=== PATIENT | male | born 1975 | race Caucasian/White ===

== ENCOUNTER 2021-02-20 08:19 | Emergency (ER) | payer OTHER ==
[~2021-02-20] VITALS: Ht 188 cm; Wt 81.6 kg
--- NOTE | 2021-02-20 08:34 | NUR ---
joel, from home, alcohol intoxicated, bs 129. On room air, breathing evenly and unlabored. Connected to the monitor and pulse ox. kept comfortable, will continue to monitor accordingly.
--- NOTE | 2021-02-20 09:09 | NUR ---
THE PATIENT UNABLE TO GIVE URINE AT THIS TIME. STARTED THAT HE WILL TRY TO URINATE LATER.
[2021-02-20 09:27] LABS: BASOPHILS % (AUTO) 0.2 % (0.0-2.0); EOSINOPHILS % (AUTO) 0.1 % (0.0-6.0); HEMATOCRIT 44 % (39-51); HEMOGLOBIN 15.6 g/dL (13.5-17.5); LYMPHOCYTES # (AUTO) 2.7 K/uL (0.8-4.8); LYMPHOCYTES % (AUTO) 39.6 % (20.0-44.0); MEAN CORPUSCULAR HGB CONC 35 g/dl (31.0-36.0); MEAN CORPUSCULAR VOLUME 94 fL (80-96); MONOCYTES # (AUTO) 0.6 K/uL (0.1-1.30); MONOCYTES % (AUTO) 8.7 % (2.0-12.0); NEUTROPHILS # (AUTO) 3.5 K/uL (1.8-8.9); NEUTROPHILS % (AUTO) 51.4 % (43.0-81.0); PLATELET COUNT (AUTO) 168 K/uL (150-450); RED BLOOD CELL COUNT(AUTO) 4.72 MIL/uL (4.5-6.0); WHITE BLOOD COUNT (AUTO) 6.8 K/uL (4.3-11.0)
[2021-02-20 09:30] LABS: CREATININE 0.8 mg/dL (0.6-1.3); POTASSIUM 3.3 mmol/L (3.5-5.1)
[2021-02-20] MEDS ORDERED: HALOPERIDOL LACTATE INJ 5 MG/ML VIAL IM ONE (09:30)
[2021-02-20] MEDS ORDERED: HALOPERIDOL LACTATE INJ 5 MG/ML VIAL ONE (09:31)
[2021-02-20 09:38] LABS: ALBUMIN 3.6 g/dL (3.4-5.0); BILIRUBIN,DIRECT 0.5 mg/dL (0.0-0.2); BILIRUBIN,TOTAL 1.2 mg/dL (0.2-1.0); CALCIUM, SERUM 7.6 mg/dL (8.5-10.1); TOTAL PROTEIN, SERUM 7.6 g/dL (6.4-8.2)
--- NOTE | 2021-02-20 09:45 | NUR ---
URINE COLLECTED AND SENT TO THE LAB
[2021-02-20 10:00] LABS: BILIRUBIN,URINE Negative (NEGATIVE); COLOR,URINE YELLOW (YELLOW); LEUKOCYTE ESTERASE ,URINE Negative (NEGATIVE); NITRITE, URINE Negative (NEGATIVE); PH,URINE 6.5 (5.0-8.0); PROTEIN,URINE Trace mg/dl (NEGATIVE); UGLUCOSE Negative (NEGATIVE)
[2021-02-20 10:12] LABS: BACTERIA,URINE Rare /HPF (None Seen); RBC,URINE 0-2 /HPF (0-2); SQUAMOUS EPITHELIAL CELL,UR Rare /HPF (None Seen); WBC,URINE 0-2 /HPF (0-3)
--- NOTE | 2021-02-20 11:05 | NUR ---
ENDORSEMENT GIVEN TO NURSE SOUZA FOR [employer]
--- NOTE | 2021-02-20 11:14 | NUR ---
THE PATIENT IS IN NO APPARENT DISTRESS. VSS STABLE.
--- NOTE | 2021-02-20 11:29 | NUR ---
PT IS CURRENTLY SLEEPING. NO DISTRESS NOTED.
[2021-02-20] MEDS ORDERED: POTASSIUM CHLORIDE 20 MEQ TAB.PRT.SR PO ONE (11:30)
[2021-02-20] MEDS ORDERED: POTASSIUM CHLORIDE 10 MEQ TABLET.SA ONE (11:41)
--- NOTE | 2021-02-20 11:53 | NUR ---
PT IS AWAKE. AMBULATED TO THE BATHROOM W/O ASSIST.
--- NOTE | 2021-02-20 11:55 | NUR ---
CALLED PT'S GIRLFRIEND FOR TAX PREPARER BUT NO ANSWER. UNABLE TO LEAVE VOICEMAIL WELL
[2021-02-20] MEDS ORDERED: LORAZEPAM 1 MG TABLET ONE ×2 (12:08→13:07)
[2021-02-20] MEDS ORDERED: LORAZEPAM 1 MG TABLET PO ONE ×2 (12:30→13:30)
--- NOTE | 2021-02-20 12:30 | NUR ---
SAVANAH [facility] CALLED,CONTACT INFO [phone]
[2021-02-20] MEDS ORDERED: METOCLOPRAMIDE HCL 10 MG/2 ML VIAL IM ONE (13:00)
[2021-02-20] MEDS ORDERED: METOCLOPRAMIDE HCL 10 MG/2 ML VIAL ONE (13:01)
--- NOTE | 2021-02-20 13:18 | NUR ---
PT IS RELEASED UNDER THE CARE OF HIS GIRLFRIEND, DOMINIK. PT IS MEDICALLY CLEARED. HE IS AMBULATORY ON STEADY GAIT WITHOUT ASSIST. PT IS GOING TO BE ADMITTED FOR TREATMENT AT THE [facility] WHERE THEY ARE HEADING.
[2021-02-20 13:20] VITALS: BP 148/90
--- NOTE | 2021-02-20 13:38 | NUR ---
SW attempted to meet with pt. for assessment and addiction resources. However, pt. has departed with girlfriend and per EMR, plan is for pt. to go to [facility] rehab.
== END 2021-02-20 13:21 | disposition home or self-care (01) ==
LOC: ER 08:22
DX: F10.129 Alcohol abuse with intoxication, unspecified (principal); R45.1 Restlessness and agitation; E87.6 Hypokalemia; E83.51 Hypocalcemia; Y90.8 Blood alcohol level of 240 mg/100 ml or more
CPT/HCPCS: 36415; 80048; 80076; 80143; 80307; 80320; 81001; 83735; 84484; 85025; 93005; 96372 ×2; 99285; J1630; J2765; G0480

== ENCOUNTER 2021-07-21 10:45 | Inpatient (IN) | payer OTHER ==
[~2021-07-21] VITALS: Ht 188 cm; Wt 92.1 kg
--- NOTE | 2021-07-21 10:55 | NUR ---
BRENDA 60 AFTER PT ROOMMATE FINDING HIM ON THE FLOOR STATING THAT HE HAS BEEN DRINKING FOR THE PAST 7 DAYS. BLOOD GLUCOSE WAS 360 SHOE COVERER. NOTED BRUISING ON FACE AND LOWER BACK. BLOOD GLUCOSE WAS RETAKEN UPON ARRIVAL AND WAS 249. HEART RATE IS EELEVATED, MD AWARE. BREATHING IS EVEN AND UNLABORED.
[2021-07-21] MEDS ORDERED: IV NS 0.9% 1,000 ML BAG IV ONE (11:00)
--- NOTE | 2021-07-21 11:21 | NUR ---
IV ESTABLISHED #20G R AC, LABS WERE DRAWN AND DAMIR Das
[2021-07-21 11:29] LABS: BASOPHILS % (AUTO) 0.1 % (0.0-2.0); EOSINOPHILS % (AUTO) 0.1 % (0.0-6.0); HEMATOCRIT 54 % (39-51); LYMPHOCYTES # (AUTO) 1.8 K/uL (0.8-4.8); LYMPHOCYTES % (AUTO) 31.2 % (20.0-44.0); MEAN CORPUSCULAR HGB CONC 34 g/dl (31.0-36.0); MEAN CORPUSCULAR VOLUME 95 fL (80-96); MONOCYTES # (AUTO) 0.4 K/uL (0.1-1.30); MONOCYTES % (AUTO) 6.2 % (2.0-12.0); NEUTROPHILS # (AUTO) 3.5 K/uL (1.8-8.9); NEUTROPHILS % (AUTO) 62.4 % (43.0-81.0); PLATELET COUNT (AUTO) 60 K/uL (150-450); RED BLOOD CELL COUNT(AUTO) 5.62 MIL/uL (4.5-6.0); WHITE BLOOD COUNT (AUTO) 5.7 K/uL (4.3-11.0)
--- NOTE | 2021-07-21 11:34 | NUR ---
PT TAKEN TO CT
[2021-07-21 11:41] LABS: ALANINE AMINOTRANSFERASE 64 U/L (12-78); ALBUMIN 3.5 g/dL (3.4-5.0); ALKALINE PHOSPHATASE 220 U/L (46-116); ASPARTATE AMINOTRANSFERASE 195 U/L (15-37); BILIRUBIN,DIRECT 0.6 mg/dL (0.0-0.2); CALCIUM, SERUM 7.8 mg/dL (8.5-10.1); CARBON DIOXIDE 24 mmol/L (21-32); CHLORIDE 95 mmol/L (98-107); CREATININE 0.9 mg/dL (0.6-1.3); GLUCOSE 225 mg/dL (74-106); POTASSIUM 3.1 mmol/L (3.5-5.1); SODIUM SERUM 137 mmol/L (136-145); TOTAL PROTEIN, SERUM 8.3 g/dL (6.4-8.2); UREA NITROGEN, BLOOD 13 mg/dL (7-18)
[2021-07-21 11:42] LABS: ACETAMINOPHEN < 2 ug/ml (10-30)
[2021-07-21 11:57] LABS: EOSINOPHILS % (MANUAL) 1 % (0-4); LYMPHOCYTES % (MANUAL) 26 % (16-48); MONOCYTES % (MANUAL) 4 % (0-11.0); NEUTROPHILS % (MANUAL) 69 (42-76)
[2021-07-21] MEDS ORDERED: POTASSIUM CHLORIDE 10 MEQ/50 ML PREMIXED IVPB FOR PERIPHERAL LINE IV ONE (12:00)
[2021-07-21] MEDS ORDERED: POTASSIUM CHLORIDE 20 MEQ TAB.PRT.SR PO ONE ×2 (12:00→12:22)
[2021-07-21 12:03] LABS: SERUM AMMONIA 24 umol/L (11-32); THYROID STIMULATING HORMONE 1.281 uIU/mL (0.358-3.74)
--- NOTE | 2021-07-21 12:03 | NUR ---
URINE COLLECTED AND SENT
[2021-07-21] MEDS ORDERED: POTASSIUM CL. PREMIX PERIPHER. 50 ML ONE (12:22)
[2021-07-21 12:41] LABS: BILIRUBIN,URINE MODERATE (NEGATIVE); COLOR,URINE ORANGE (YELLOW); LEUKOCYTE ESTERASE ,URINE NEGATIVE (NEGATIVE); NITRITE, URINE NEGATIVE (NEGATIVE); PROTEIN,URINE 100 mg/dl (NEGATIVE); UGLUCOSE NEGATIVE (NEGATIVE)
[2021-07-21 12:55] LABS: BACTERIA,URINE Few /HPF (None Seen); SQUAMOUS EPITHELIAL CELL,UR Few /HPF (None Seen); WBC,URINE 0-2 /HPF (0-3)
--- NOTE | 2021-07-21 13:12 | NUR ---
PT NON COMPLIANT AND NOT ABLE TO FOLLOW COMMANDS. WILL HOLD K DUR UNTIL WHEN PT IS MORE ALERT. SANTOSH MOE AWARE.
--- NOTE | 2021-07-21 13:39 | NUR ---
DR FREEMAN WAS SENT A VIDEO OF PT'S CT
[2021-07-21] MEDS ORDERED: LEVETIRACETAM (500MG) 1,000 MG in IV NS 0.9% 100 ML IV SCH (14:00)
--- NOTE | 2021-07-21 14:00 | NUR ---
COVID SWAB COLLECTED AND SENT TO LAB
--- NOTE | 2021-07-21 14:00 | NUR ---
SARCOV2 AG COLLECTED BY LAB AT BEDSIDE, IN PROGRESS
--- NOTE | 2021-07-21 14:15 | NUR ---
MOVE SHEET SUBMITTED.
--- NOTE | 2021-07-21 14:36 | NUR ---
[facility] CALLED LOAF COUNTER PAGED.
[2021-07-21] MEDS ORDERED: ACETAMINOPHEN 325 MG TABLET PO PRN (15:30)
[2021-07-21] MEDS ORDERED: Z GUARD REMEDY 4 OZ OINT TP PRN (15:30)
--- NOTE | 2021-07-21 17:39 | NUR ---
JOURDAN NEGRETE CALLED, SISTER [phone] STATES PT HAS ISSUES WITH ALCOHOL, AND HAS A BRAIN BLEED FELL IN APRIL TOOK HIM TO [facility] AND FELL AGAIN FEW WEEKS AGO TOOK TO [facility] AND REFUSED TREATMENT AND GOT DC'D.
[2021-07-21] MEDS ORDERED: LORAZEPAM INJ 2 MG/ML VIAL ONE (18:24)
[2021-07-21] MEDS: LORAZEPAM INJ 2 MG/ML VIAL IV PRN (18:34)
--- NOTE | 2021-07-21 18:34 | NUR ---
PT AGITATED AND RESTLESS, TACHY ON THE MONITOR. ATIVAN 1 MG IVP GIVEN. SEE EMAR.
[2021-07-21] MEDS ORDERED: POTASSIUM CL. PREMIX PERIPHER. 200 ML ONE (18:45)
[2021-07-21] MEDS ORDERED: PANTOPRAZOLE 40 MG VIAL ONE (18:45)
[2021-07-21] MEDS: PANTOPRAZOLE 40 MG VIAL IV SCH (19:04)
[2021-07-21] MEDS: Thiamine 100 MG in IV D5W 50 ML IV SCH (19:04)
[2021-07-21] MEDS: POTASSIUM CL. PREMIX PERIPHER. 50 ML IV SCH ×2 (21:56→23:04)
--- NOTE | 2021-07-21 21:56 | NUR ---
ADMINISTERING POTASSIUM [id number]: BAG 1/4 L HAND #20G S/L; PATENT AND INTACT IVF DELAYED DUE TO NO IV ACCESS
[2021-07-22] VITALS (8 sets, daily range): BP systolic 105–140; BP diastolic 77–90
[2021-07-22] MEDS: POTASSIUM CL. PREMIX PERIPHER. 50 ML IV SCH (00:03)
--- NOTE | 2021-07-22 00:18 | NUR ---
ROOM ASSIGNMENT: 309-1
--- NOTE | 2021-07-22 00:28 | NUR ---
REPORT GIVEN TO NENO BOOTH FOR [employer]
[2021-07-22] MEDS ORDERED: ONDANSETRON HCL/PF 4 MG/2 ML VIAL ONE (00:37)
[2021-07-22] MEDS: ONDANSETRON HCL/PF 4 MG/2 ML VIAL IVP PRN ×2 (00:38→04:27)
[2021-07-22] MEDS ORDERED: LORAZEPAM INJ 2 MG/ML VIAL ONE (00:42)
[2021-07-22] MEDS: LORAZEPAM INJ 2 MG/ML VIAL IV PRN ×6 (00:47→22:16)
--- NOTE | 2021-07-22 00:50 | NUR ---
SILVICULTURE FORESTER OPENING NOTE PATIENT RECEIVED FROM ER BY JANE. PATIENT WAS ABLE TO AMBULATE TO HIS BED. NO S/S OF DISTRESS, PATIENT EXHIBITS TREMORS. VS ARE WNL: 128/93, HR 109, RESP 20, T 97.9, O2 93%. HOWEVER, TELE STATES 139. PT HAS LH 20G. PATENT. PATIENT WAS ORIENTED TO THE ROOM AND GIVEN CALL BRENNAN. BELONGINGS ACCOUNTED FOR AND LOGGED INTO SHEET BY TELEVISION NEWS VIDEO EDITOR. PATIENT IS TELE WITH 139. BED AT LOWEST POSITION, RAILS UP X2, CALL BRENNAN WITHIN REACH. WILL CONTINUE TO MONITOR PATIENT.
--- NOTE | 2021-07-22 01:03 | NUR ---
PT TRANSFERRED 3W 309-1 VIA ACLS PROTOCOL. ALL BELONGINGS WITH PT
[2021-07-22] MEDS: IV NS 0.9% 1,000 ML IV PRN (04:11)
[2021-07-22] MEDS ORDERED: LEVETIRACETAM (500MG) 500 MG/5 ML VIAL IV ONE (04:41)
[2021-07-22] MEDS: LEVETIRACETAM (500MG) 1,000 MG in IV NS 0.9% 100 ML IV SCH ×2 (04:58→14:34)
--- NOTE | 2021-07-22 07:10 | NUR ---
RN OPENING NOTE RECEIVED PATIENT IN BED. A/O X2-3. ABLE TO MAKE NEEDS KNOWN. ON ROOM AIR, TOLERATING WELL. DENIES SOB. NO S/S OF REPSIRATORY DISTRESS. ST ON THE TELE MONITOR. IV ACCESS ON L HAND #20 G, NS RUNNING AT 125 ML/HR, INTACT AND PATENT. RANGEL CATHETER IN PLACE, DRAINIG YELLOW URINE. SAFETY MEASURES MAINTAINED. BED IN LOWEST POSITION, BRAKES LOCKED. SIDE RAILS UP X2. CALL LIGHT WITHIN REACH. WILL CONTINUE PLAN OF CARE.
[2021-07-22 08:00] LABS: CALCIUM, SERUM 7.9 mg/dL (8.5-10.1); CREATININE 0.9 mg/dL (0.6-1.3); MAGNESIUM 1.3 mg/dL (1.8-2.4); PHOSPHORUS 1.9 mg/dL (2.5-4.9); POTASSIUM 3.6 mmol/L (3.5-5.1)
--- NOTE | 2021-07-22 08:03 | NUR ---
RN NOTE PER NENO BOOTH, 4th BAG OF POTASSIUM CHLORIDE 10 mEq/50 ml WAS GIVEN BY AN FRONT OFFICE AGENT BEFORE BRINGING THE PATIENT UP FOR ADMISSION.
[2021-07-22] MEDS: PANTOPRAZOLE 40 MG VIAL IV SCH (08:37)
[2021-07-22] MEDS: Magnesium 1GM/D5W 100ML PREMIX 100 ML IV SCH ×4 (10:06→13:45)
[2021-07-22 11:54] LABS: BASOPHILS % (AUTO) 0.2 % (0.0-2.0); HEMATOCRIT 36 % (39-51); HEMOGLOBIN 12.3 g/dL (13.5-17.5); LYMPHOCYTES # (AUTO) 1.1 K/uL (0.8-4.8); LYMPHOCYTES % (AUTO) 23.1 % (20.0-44.0); MEAN CORPUSCULAR HGB CONC 35 g/dl (31.0-36.0); MEAN CORPUSCULAR VOLUME 95 fL (80-96); MONOCYTES # (AUTO) 0.5 K/uL (0.1-1.30); MONOCYTES % (AUTO) 11.2 % (2.0-12.0); NEUTROPHILS # (AUTO) 3.2 K/uL (1.8-8.9); NEUTROPHILS % (AUTO) 65.5 % (43.0-81.0); RED BLOOD CELL COUNT(AUTO) 3.74 MIL/uL (4.5-6.0); WHITE BLOOD COUNT (AUTO) 4.9 K/uL (4.3-11.0)
[2021-07-22] MEDS ORDERED: K PHOS NEUTRAL 250 MG TABLET PO ONE (16:00)
[2021-07-22 17:24] LABS: PLATELET COUNT (AUTO) 29 K/uL (150-450)
--- NOTE | 2021-07-22 17:25 | NUR ---
RN NOTE RECEIVED A CALL FROM THE LAB (CHAITANYA Moss) REGARDING A CRITICAL VALUE, PLATELET 29. DR JAMAAL SOTELO, CLAUDY WAS MADE AWARE. NO NEW ORDERS.
[2021-07-22] MEDS: Thiamine 100 MG in IV D5W 50 ML IV SCH (18:30)
--- NOTE | 2021-07-22 18:42 | NUR ---
RN CLOSING NOTE PATIENT RESTING IN BED. A/O X2-3. ON ROOM AIR, TOLERATING WELL. DENIES SOB. NO S/S OF RESPIRATORY DISTRESS. IV ACCESS ON L HAND #20 G, NS RUNNING AT 125 ML/HR, INTACT AND PATENT. RANGEL CATHETER IN PLACE, DRAINING LUIS ANTONIO URINE. DUE MEDS GIVEN ORDERED. ALL NEEDS HAVE BEEN MET AND ATTENDED. SAFETY MEASURES MAINTAINED. BED IN LOWEST POSITION, BRAKES LOCKED. SIDE RAILS UP X2. KEPT CALL LIGHT WITHIN REACH. WILL ENDORSE CONTINUITY OF CARE TO ONCOMING SHIFT.
[2021-07-22 19:12] LABS: BAND % (MANUAL) 2 % (0.0-5.0); LYMPHOCYTES % (MANUAL) 21 % (16-48); MONOCYTES % (MANUAL) 5 % (0-11.0); NEUTROPHILS % (MANUAL) 72 (42-76)
--- NOTE | 2021-07-22 20:01 | NUR ---
MS OPENING NOTE PATIENT RECEIVED ASLEEP IN BED. A/OX4. NO S/S OF DISTRESS, BREATHING SYMMETRICAL. PATIENT IS MEDSURG, BUT PREVIOUS NURSE ENDORSE KEEPING THE TELE MONITOR ON D/T EARLIER INCREASED HR OF 190s. [employer] CURRENTLY REPORTS SR 100. SAFETY MEASURES IN PLACE: BED AT LOWEST POSITION, RAILS UP X2, CALL BRENNAN WITHIN REACH. WILL CONTINUE TO MONITOR.
[2021-07-23] MEDS: LEVETIRACETAM (500MG) 1,000 MG in IV NS 0.9% 100 ML IV SCH (02:16)
[2021-07-23] MEDS: IV NS 0.9% 1,000 ML IV PRN ×2 (02:42→18:39)
[2021-07-23] MEDS: LORAZEPAM INJ 2 MG/ML VIAL IV PRN ×5 (02:42→21:45)
[2021-07-23 04:00] VITALS: BP 132/84
[2021-07-23 06:22] LABS: BASOPHILS % (AUTO) 0.2 % (0.0-2.0); HEMATOCRIT 36 % (39-51); HEMOGLOBIN 12.1 g/dL (13.5-17.5); LYMPHOCYTES # (AUTO) 0.8 K/uL (0.8-4.8); LYMPHOCYTES % (AUTO) 26.3 % (20.0-44.0); MEAN CORPUSCULAR HGB CONC 34 g/dl (31.0-36.0); MEAN CORPUSCULAR VOLUME 96 fL (80-96); MONOCYTES # (AUTO) 0.3 K/uL (0.1-1.30); MONOCYTES % (AUTO) 9.6 % (2.0-12.0); NEUTROPHILS # (AUTO) 1.8 K/uL (1.8-8.9); NEUTROPHILS % (AUTO) 61.9 % (43.0-81.0); RED BLOOD CELL COUNT(AUTO) 3.72 MIL/uL (4.5-6.0); WHITE BLOOD COUNT (AUTO) 2.9 K/uL (4.3-11.0)
--- NOTE | 2021-07-23 06:30 | NUR ---
CHAIRMAN CEO CLOSING NOTE PATIENT ASLEEP IN BED. A/OX4. NO S/S OF DISTRESS, BREATHING SYMMETRICAL. CABLE SYSTEMS INSTALLER REPORTS ST112 WHICH IS RELATIVELY GOOD FOR THIS PATIENT. LH #20 G NS 125ML/HR. SAFETY MEASURES IN PLACE: BED AT LOWEST LEVEL, RAILS UP X2, CALL BRENNAN WITHIN REACH. WILL ENDORSE TO NEXT SHIFT FOR [employer].
[2021-07-23 06:56] LABS: CALCIUM, SERUM 8.3 mg/dL (8.5-10.1); CREATININE 0.7 mg/dL (0.6-1.3); MAGNESIUM 2.2 mg/dL (1.8-2.4)
--- NOTE | 2021-07-23 07:21 | NUR ---
MS RN OPENING NOTES RECEIVED PATIENT AWAKE IN BED IN NO ACUTE SIGNS OF DISTRESS. A/O X 4. ABLE TO MAKE NEEDS KNOWN, DENIES PAIN OR ANY DISCOMFORTS AT THIS TIME. ON ROOM AIR, TOLERATING WELL WITH NO SOB NOTED. IV ACCESS ON LEFT HAND INTACT WITH IVF OF NS @125 ML/HR INFUSING WELL, NO S/SX OF INFILTRATION NOTED. RANGEL IN PLACE AND ACTIVELY DRAINING DARK YELLOW URINE OUTPUT NOTED. SAFETY MEASURES IN PLACED: BED IN LOWEST LOCKED POSITION WITH SR UP X2. CALL LIGHT WITHIN REACH. WILL CONTINUE TO MONITOR PT ACCORDINGLY.
[2021-07-23 08:00] VITALS: BP 129/79
[2021-07-23] MEDS ORDERED: K PHOS NEUTRAL 250 MG TABLET PO ONE (08:00)
[2021-07-23] MEDS ORDERED: POTASSIUM CHLORIDE 20 MEQ TAB.PRT.SR PO ONE ×2 (08:00→12:00)
[2021-07-23] MEDS: PANTOPRAZOLE 40 MG VIAL IV SCH (08:04)
[2021-07-23 08:06] LABS: PLATELET COUNT (AUTO) 27 K/uL (150-450)
--- NOTE | 2021-07-23 08:09 | NUR ---
RN NOTES PT NOTED ANXIOUS AND REQUESTED FOR MEDICATION TO CALM HIM DOWN. PRN ATIVAN 1MG/0.5ML IVP ADMINISTERED AT 0804. WILL CONTINUE TO MONITOR PT.
[2021-07-23] MEDS ORDERED: FOLI0.4T6 PO (08:33)
[2021-07-23] MEDS ORDERED: LEVE500T20 PO (08:33)
[2021-07-23] MEDS ORDERED: DIVA-76 PO (08:33)
[2021-07-23] MEDS ORDERED: THIA100T70 PO (08:33)
[2021-07-23] MEDS: LEVETIRACETAM (250 MG) 250 MG TABLET PO SCH ×2 (09:34→21:06)
[2021-07-23] MEDS: THIAMINE HCL 100 MG TABLET PO SCH (09:34)
--- NOTE | 2021-07-23 11:06 | NUR ---
RN NOTES ASKED PT IF HE RECEIVED COVID-19 VACCINE AND STATED THAT HE RECEIVED YVONNE AND YVONNE 1 DOSE ONLY ON 04/2021.
--- NOTE | 2021-07-23 12:01 | NUR ---
RN NOTES PT NOTED ANXIOUS. PRN ATIVAN 1MG/0.5ML IVP ADMINISTERED AT 1201. WILL CONTINUE TO MONITOR PT.
--- NOTE | 2021-07-23 14:24 | NUR ---
RN NOTES RANGEL CATHETER REMOVED PER MD ORDER. NO BLEEDING NOTED WITH 800ML CLEAR YELLOW URINE OUTPUT NOTED. WILL CONTINUE TO MONITOR.
--- NOTE | 2021-07-23 15:32 | NUR ---
RN NOTES PT IN BED AND NOTED ANXIOUS. PRN ATIVAN 1MG/0.5ML IVP ADMINISTERED AT 1525. WILL CONTINUE TO MONITOR PT.
[2021-07-23 16:00] VITALS: BP 129/76
--- NOTE | 2021-07-23 18:45 | NUR ---
MS RN CLOSING NOTES PATIENT IN BED AWAKE AT THIS TIME WATCHING TV. A/O X 4. ABLE TO MAKE NEEDS KNOWN. ON ROOM AIR, TOLERATING WELL WITH NO SOB NOTED DURING SHIFT. IV ACCESS ON LEFT HAND INTACT WITH IVF OF NS @125 ML/HR INFUSING WELL, NO S/SX OF INFILTRATION NOTED. ALL NEEDS AND CARE ATTENDED WELL. SAFETY MEASURES IN PLACED: BED IN LOWEST LOCKED POSITION WITH SR UP X2. CALL LIGHT W/IN REACH. WILL ENDORSE [employer] TO DIRECTOR MEDIA NURSE.
[2021-07-23 20:00] VITALS: BP 109/72
--- NOTE | 2021-07-23 21:48 | NUR ---
RN NOTE: ANXIETY PATIENT C/O FEELING ANXIOUS/RESTLESS, PATIENT REQUESTED TO HAVE ATIVAN FOR ANXIETY, PRN ATIVAN 1 MG IV ADMINISTERED ORDERED. WILL CONTINUE TO MONITOR FOR ANY CHANGE OF CONDITION.
[2021-07-23 22:10] VITALS: BP 112/69
[2021-07-24] MEDS: IV NS 0.9% 1,000 ML IV PRN (03:48)
[2021-07-24] MEDS: LORAZEPAM INJ 2 MG/ML VIAL IV PRN ×2 (04:04→12:21)
--- NOTE | 2021-07-24 04:06 | NUR ---
RN NOTE: ANXIETY PATIENT C/O FEELING ANXIOUS AND REQUESTED TO HAVE ATIVAN FOR ANXIETY, PRN ATIVAN 1 MG IV ADMINISTERED ORDERED. WILL CONTINUE TO MONITOR FOR ANY CHANGE OF CONDITION.
--- NOTE | 2021-07-24 06:30 | NUR ---
MS RN NOTE PATIENT IS RESTING IN BED, PATIENT USES URINAL IN BED, BED SHEET IS NOTED TO BE WET ON THE EDGE, ENCOURAGED PATIENT TO CHANGE THE BED SHEET BUT PATIENT REFUSED X 3 DESPITE OF EXPLANATIONS. PATIENT WANTS TO SLEEP AT THIS TIME AND DOESN'T WANT TO BE BOTHERED. WILL ENDORSE TO AM RN.
[2021-07-24] MEDS ORDERED: PANTOPRAZOLE 40 MG TABLET.DR PO SCH (07:30)
[2021-07-24 08:00] VITALS: BP 128/93
--- NOTE | 2021-07-24 08:00 | NUR ---
m/s buffing and sueding machine operator: notes received pt in bed awake, a/o3. no c/o pain or any discomfort. no s/s of alcohol withdrawal at this time. instructed to call for assistance. will continue to monitor.
[2021-07-24] MEDS: LEVETIRACETAM (250 MG) 250 MG TABLET PO SCH (08:46)
[2021-07-24] MEDS: THIAMINE HCL 100 MG TABLET PO SCH (08:46)
--- NOTE | 2021-07-24 10:00 | NUR ---
m/s ada accommodation consultant: notes pt for d'c planning home today, pt aware. awaiting for md blunt and justin.
[2021-07-24] MEDS ORDERED: LEVE250T2 PO (14:00)
--- NOTE | 2021-07-24 14:06 | NUR ---
m/s remote medical coder: md visit seen by deepak werner) with order to d'c home. order acknowledged. pt called his girlfriend to pick him up. will continue to monitor.
--- NOTE | 2021-07-24 14:40 | NUR ---
m/s electorate officer: notes discharge instructions given with e script keppra 1000mg po q 12 hrs prescription, pt verbalized understanding. pt says he still has keppra at home.
--- NOTE | 2021-07-24 16:05 | NUR ---
m/s weaver hand loom: notes girlfriend in the lobby and brought pt's clothes.
--- NOTE | 2021-07-24 16:15 | NUR ---
m/s shield cleaner: notes discharge home in stable condition accompanied by girlfriend via private car with d'c papers.
== END 2021-07-24 16:00 | disposition home or self-care (01) | DRG 55 ==
LOC: ER 10:50 → TELE 07-22 00:38 → MED 07-22 10:33
PROVIDERS: ADMIT Nurse Practitioner Acute Care; ATTEND Nurse Practitioner Acute Care
DX: S06.5X9A Traumatic subdural hemorrhage with loss of consciousness of unspecified duration, initial encounter (principal); G92.8 Other toxic encephalopathy; E83.39 Other disorders of phosphorus metabolism; G31.89 Other specified degenerative diseases of nervous system; W18.30XA Fall on same level, unspecified, initial encounter; Y92.9 Unspecified place or not applicable; F10.239 Alcohol dependence with withdrawal, unspecified; Z91.81 History of falling; Y90.8 Blood alcohol level of 240 mg/100 ml or more; R25.1 Tremor, unspecified; R73.9 Hyperglycemia, unspecified; Z20.822 Contact with and (suspected) exposure to COVID-19; E87.6 Hypokalemia; F19.10 Other psychoactive substance abuse, uncomplicated; F17.210 Nicotine dependence, cigarettes, uncomplicated; S00.83XA Contusion of other part of head, initial encounter
CPT/HCPCS: 36415; 70450-TC; 71045-TC; 80048-TC; 80076-TC; 81001; 82140-TC; 82962-TC; 83735-TC; 84100-TC; 84443-TC; 84484-TC; 85025-TC; 87081-TC; 97116-TC; 97530-TC; C9113; C9803; G0378; G0480; J1953; J2060; J2405; J3411; J3475; J3480; J7030; J7040; J7060